=== PATIENT | male | born 1965 | race Caucasian/White ===

== ENCOUNTER → 2017-08-30 | Outpatient (CLI) | payer BC | LOC: LAB 14:13 | DX: Z31.42 Aftercare following sterilization reversal (principal) ==

== ENCOUNTER 2019-01-26 14:00 | Outpatient (RCR) | payer BC | END 2019-01-26 14:30 | disposition home or self-care (01) | LOC: PT 14:00 | DX: M25.562 Pain in left knee (principal); G89.29 Other chronic pain ==